=== PATIENT | male | born 1960 | race Two or more races ===

== ENCOUNTER 2018-03-20 01:33 | Emergency (ER) | payer OTHER ==
--- NOTE | 2018-03-20 02:10 | NUR ---
CALLED PT FOR TRIAGE, NO ANSWER.
--- NOTE | 2018-03-20 02:25 | NUR ---
CALLED PT TO TRIAGE, NO ANSWER
--- NOTE | 2018-03-20 02:37 | NUR ---
CALLED PT FOR TRIAGE, NO ANSWER. PER SECURITY, PT LEFT.
== END 2018-03-20 02:40 | disposition left against medical advice (07) ==
LOC: ER 01:44
DX: Z53.21 Procedure and treatment not carried out due to patient leaving prior to being seen by health care provider (principal)